=== PATIENT | female | born 1995 | race African-American/Black ===

== ENCOUNTER 2023-01-25 07:33 | Inpatient (IN) | payer OTHER ==
[~2023-01-25] VITALS: Ht 152.4 cm; Wt 72.6 kg
--- NOTE | 2023-01-25 07:39 | NUR ---
called pt to lobby, pt in restroom.
[2023-01-25 07:42] VITALS: BP 179/89; PULSE 115; RESP 22; TEMP 97.7; O2SAT 96
--- NOTE | 2023-01-25 07:42 | NUR ---
ute avila aware of pt status
[2023-01-25] MEDS ORDERED: NACL 0.9% 2,000 ML IV SCH (07:50)
[2023-01-25] MEDS ORDERED: cefTRIAXone 1,000 MG in DEXT 5% MINI-BAG PLUS 50 ML IV ONE (07:50)
--- NOTE | 2023-01-25 07:50 | NUR ---
PATIENT IN BED, PLACED IN ROOM 11, IV PLACED ON THE LEFT HAND, BS: [address] LI AWARE OF ELEVATED SUGAR, NS STARTED PER MD ORDER.
[2023-01-25] MEDS ORDERED: ONDANSETRON 4 MG/2 ML VIAL IVP ONE (08:05)
[2023-01-25] MEDS ORDERED: cefTRIAXone 1,000 MG VIAL ONE (08:06)
--- NOTE | 2023-01-25 08:30 | NUR ---
DR. LI AT BEDSIDE.
[2023-01-25 08:44] LABS: BASOPHILS % (AUTO) 0.4 % (0.0-2.0); EOSINOPHILS % (AUTO) 0.2 % (0.0-4.0); HEMATOCRIT 34.1 % (36-48); HEMOGLOBIN 11.1 g/dL (12.0-16.0); LYMPHOCYTES # (AUTO) 1.5 K/uL (2.5-16.5); LYMPHOCYTES % (AUTO) 17.4 % (20.5-51.1); MEAN CORPUSCULAR HEMOGLOBIN 31 pg (27-31); MEAN CORPUSCULAR HGB CONC 33 g/dL (33-37); MEAN CORPUSCULAR VOLUME 93.8 fL (80-94); MONOCYTES # (AUTO) 0.5 K/uL (0.8-1.0); MONOCYTES % (AUTO) 5.3 % (1.7-9.3); NEUTROPHILS # (AUTO) 6.8 K/uL (1.8-7.7); NEUTROPHILS % (AUTO) 76.7 % (42.2-75.2); PLATELET COUNT (AUTO) 354 K/uL (140-450); RED BLOOD CELL COUNT(AUTO) 3.64 MIL/uL (4.20-5.40); RED CELL DISTRIBUTION WIDTH 12.8 % (11.6-13.7); WHITE BLOOD COUNT (AUTO) 8.9 K/uL (4.8-10.8)
[2023-01-25 08:58] LABS: ALBUMIN 3.4 g/dL (3.4-5.0); ANION GAP 25.6 (8-16); CARBON DIOXIDE 18.6 mmol/L (21-32); CREATININE 1.3 mg/dL (0.6-1.3); POTASSIUM 4.2 mmol/L (3.5-5.1); TOTAL BILIRUBIN 0.7 mg/dL (0.0-1.0)
--- NOTE | 2023-01-25 09:02 | NUR ---
RECEIVED CRITICAL LAB VALUE, GLUCOSE 640, DR. LI AWARE.
[2023-01-25] MEDS ORDERED: INSULIN REGULAR, HUMAN 100 UNIT/ML VIAL IVP ONE (09:45)
--- NOTE | 2023-01-25 10:00 | NUR ---
PERFORMED BEDSIDE GLUCOSE CHECK, MONITOR STATES "HI" AND UNABLE TO OBTAIN GLUCOSE RESULT, INFORMED DR. LI, REQUESTED IF MD WANTS ANOTHER BMP FOR GLUCOSE CHECK FROM LAB, MD STATES HE DOES NOT WANT BMP GLUCOSE AND TO UTILIZE THE CRITICAL RESULT FROM PREVIOUS BMP GLUCOSE (640), AND TO GO AHEAD AND ADMINISTER THE ORDERED INSULIN (PLEASE SEE EMAR FOR FURTHER DETAILS) AND TO BE ADMITTED TO TELE. NO ADDITIONAL ORDERS NOTED AT THE MOMENT.
--- NOTE | 2023-01-25 10:35 | NUR ---
RECEIVED CRITICAL LAB VALUES X2 (PLEASE SEE EMR FOR FURTHER DETAILS), DR. LI IS AWARE OF THE RESULTS, NO ORDERS NOTED AT THE MOMENT AND WILL REINFORCE IF NEEDED.
[2023-01-25] MEDS ORDERED: DEXTROSE 50% 50 ML SYR IVP PRN (11:20)
[2023-01-25] MEDS ORDERED: MAGNESIUM OXIDE 400 MG TAB PO PRN (11:25)
[2023-01-25] MEDS ORDERED: HYDROcodone/APAP 5/325 MG 1 TAB TAB PO PRN (11:25)
[2023-01-25] MEDS ORDERED: MORPHINE SULFATE 2 MG/ML SYR IVP PRN (11:25)
[2023-01-25] MEDS ORDERED: POTASSIUM CHLORIDE 10 MEQ TABER PO PRN (11:25)
[2023-01-25] MEDS ORDERED: ACETAMINOPHEN 325 MG TAB PO PRN (11:25)
[2023-01-25] MEDS ORDERED: INSULIN REGULAR, HUMAN 100 UNIT/ML VIAL IV SCH (11:26)
[2023-01-25] MEDS: NIFEdipine 30 MG TABER PO SCH (11:30)
[2023-01-25] MEDS: INSULIN LANTUS 100 UNITS/ML 10 ML VIAL SUBQ SCH (11:32)
[2023-01-25] MEDS: BLOOD GLUCOSE MONITORING 1 DEV DEV FS SCH ×3 (11:32→20:20)
[2023-01-25] MEDS: INSULIN LISPRO SLIDING SCALE 100 UNITS/ML VIAL SUBQ PRN ×3 (11:35→20:22)
[2023-01-25] MEDS: NACL 0.9% 1,000 ML IV SCH ×2 (11:36→21:48)
--- NOTE | 2023-01-25 11:50 | NUR ---
TRANSFERRED PATIENT TO ROM 112B WITH ANOTHER RN, AND ACLS. NO COMPLICATIONS OR QUESTIONS NOTED ABOUT THE TRANSFER OVER, PROVIDED BEDSIDE REPORT TO KETAN GALLARDO AND HAD NO FURTHER QUESTIONS NOTED AT THE MOMENT.
[2023-01-25 11:55] VITALS: BP 164/99; PULSE 109; PULSE 127; RESP 18; TEMP 98.8; O2SAT 99
--- NOTE | 2023-01-25 11:55 | NUR ---
RECEIVED PT FROM ER. REPORT GIVEN BY RYAN. TRANSPORTED VIA GURNEY. PLACED IN BED COMFORTABLY. ASLEEP BUT AROUSABLE. RESP. EVEN AND UNLABORED. SKIN INTACT. IV SITE INTACT TO LT HAND 22 G. MRSA SWAB COLLECTED. SEND TO LAB. NO C/O PAIN OR DISCOMFORT. CALL LIGHT KEPT WITHIN REACH. PT MONITOR CLOSELY.
--- NOTE | 2023-01-25 12:53 | NUR ---
BS CHECKED 551. HUMULIN R IV ONCE, GIVEN BY AUREA ACEVES. TOLERATED WELL.
[2023-01-25] MEDS: LORazepam 2 MG/ML VIAL IVP PRN ×2 (13:52→20:28)
--- NOTE | 2023-01-25 13:52 | NUR ---
PRN ATIVAN WAS GIVEN BY MARIN ACEVES. TOLERATED WELL.
--- NOTE | 2023-01-25 15:23 | NUR ---
SEEN BY PHYSICAL THERAPY.
[2023-01-25 16:00] VITALS: BP 159/90; PULSE 120; PULSE 126; RESP 17; TEMP 98; O2SAT 98
--- NOTE | 2023-01-25 17:50 | NUR ---
BS CHECKED 417. DR. EILAS NOTIFIED, RECEIVED NEW ORDER GIVE 15 UNITS OF HUMALOG.
--- NOTE | 2023-01-25 17:54 | NUR ---
HUMALOG 15 UNITS SQ WAS GIVEN, TOLERATED WELL.
[2023-01-25] MEDS ORDERED: hydrALAZINE 25 MG TAB PO PRN (18:45)
--- NOTE | 2023-01-25 19:00 | NUR ---
BEDSIDE REPORT GIVEN TO NIGHT NURSE FOR CONTINUITY OF CARE. REMAINS STABLE.
--- NOTE | 2023-01-25 19:10 | NUR ---
RECEIVED PT IN BED ASLEEP, EASILY AWAKEN BY VERBAL STIMULI. DENIES PAIN AT THIS TIME. DENIES SHORTNESS OF BREATH.SON AT THE BEDSIDE. IVF INFUSING WELL ORDERED. SKIN WARM AND DRY TO TOUCH. SAFETY PRECAUTIONS IN PLACE, CALL LIGHT IN REACH, ENCOURAGED TO CALL IF ASSISTANCE IS NEEDED, PT VERBALLY ACKNOWLEDGED.
[2023-01-25 20:00] VITALS: BP 147/85; PULSE 128; PULSE 132; RESP 18; TEMP 98.1; O2SAT 100
--- NOTE | 2023-01-25 20:52 | NUR ---
SPOKE WITH DR. VALVERDE INFORMED THAT HR GOES UP TO 140'S, BP--147/85, PT WAS GIVEN ATIVAN FOR ANXIETY, CURRENTLY 129. PER MD JUST MONITOR FOR NOW.
[2023-01-25 23:51] VITALS: PULSE 123
[2023-01-26] VITALS (16 sets, daily range): BP systolic 117–177; BP diastolic 61–97; PULSE 112–138; RESP 16–40; TEMP 97.3–98.4; O2SAT 98–100
--- NOTE | 2023-01-26 | NUR ---
VITAL SIGNS TAKEN AND DOCUMENTED. DENIES PAIN AT THIS TIME. CALL LIGHT WITHIN REACH.
--- NOTE | 2023-01-26 06:19 | NUR ---
PATIENT IS ASLEEP. ALL NEEDS ATTENDED TO. NO DISTRESS NOTED. SAFETY PRECAUTIONS MAINTAINED DURING THE SHIFT. FREQUENT ROUNDING DONE. CALL LIGHT REMAINS WITHIN REACH.
[2023-01-26] MEDS: INSULIN LISPRO SLIDING SCALE 100 UNITS/ML VIAL SUBQ PRN ×2 (06:30→11:39)
[2023-01-26] MEDS: BLOOD GLUCOSE MONITORING 1 DEV DEV FS SCH ×14 (06:30→23:45)
[2023-01-26 07:12] LABS: BASOPHILS # (AUTO) 0.1 K/uL (0.00-0.22); BASOPHILS % (AUTO) 0.4 % (0.0-2.0); EOSINOPHILS % (AUTO) 0.2 % (0.0-4.0); HEMATOCRIT 31.5 % (36-48); HEMOGLOBIN 10.2 g/dL (12.0-16.0); LYMPHOCYTES # (AUTO) 3.1 K/uL (2.5-16.5); LYMPHOCYTES % (AUTO) 24.7 % (20.5-51.1); MEAN CORPUSCULAR HEMOGLOBIN 30 pg (27-31); MEAN CORPUSCULAR HGB CONC 32 g/dL (33-37); MONOCYTES # (AUTO) 0.7 K/uL (0.8-1.0); MONOCYTES % (AUTO) 5.8 % (1.7-9.3); NEUTROPHILS # (AUTO) 8.7 K/uL (1.8-7.7); NEUTROPHILS % (AUTO) 68.9 % (42.2-75.2); PLATELET COUNT (AUTO) 347 K/uL (140-450); RED BLOOD CELL COUNT(AUTO) 3.39 MIL/uL (4.20-5.40); RED CELL DISTRIBUTION WIDTH 12.9 % (11.6-13.7); WHITE BLOOD COUNT (AUTO) 12.6 K/uL (4.8-10.8)
[2023-01-26 07:16] LABS: ANION GAP 22.5 (8-16); CARBON DIOXIDE 17.3 mmol/L (21-32); CREATININE 1.4 mg/dL (0.6-1.3); POTASSIUM 3.8 mmol/L (3.5-5.1)
[2023-01-26] MEDS: NACL 0.9% 1,000 ML IV SCH ×4 (08:07→22:30)
--- NOTE | 2023-01-26 08:25 | NUR ---
PATIENT REQUEST FOR BLOOD GLUCOSE CHECK AND IT IS 242 MILLIGRAMS PER DECILITER.
--- NOTE | 2023-01-26 08:50 | NUR ---
PATIENT COMPLAINT OF ANXIETY AFTER HAVING DRY HEAVES AND WOULD LIKE MEDICATION FOR THIS.
[2023-01-26] MEDS: INSULIN LANTUS 100 UNITS/ML 10 ML VIAL SUBQ SCH (09:13)
[2023-01-26] MEDS: LORazepam 2 MG/ML VIAL IVP PRN ×3 (09:13→20:44)
[2023-01-26] MEDS: NIFEdipine 30 MG TABER PO SCH (09:13)
--- NOTE | 2023-01-26 09:19 | NUR ---
PATIENT HAS BEEN SCREENED AND CATEGORIZED MODERATE NUTRITION RISK. PATIENT WILL BE SEEN WITHIN 3-5 DAYS OF ADMISSION. 01/28/23-01/30/[address]
[2023-01-26] MEDS: ONDANSETRON 4 MG/2 ML VIAL IVP PRN (09:30)
[2023-01-26 10:05] LABS: APPEARANCE,URINE SL CLOUDY (CLEAR); BILIRUBIN,URINE 1+ (NEGATIVE); BLOOD, URINE 1+ (NEGATIVE); COLOR,URINE YELLOW (YELLOW); LEUKOCYTE ESTERASE ,URINE NEGATIVE (NEGATIVE); NITRITE, URINE NEGATIVE (NEGATIVE); PH,URINE 5.5 (5.0-9.0); UGLUCOSE 1+ (NEGATIVE)
[2023-01-26 10:30] LABS: RBC,URINE 0-5 /HPF (0-5)
--- NOTE | 2023-01-26 11:59 | NUR ---
TRANSFER REPORT AT BEDSIDE WITH ICU TEAM.
[2023-01-26] MEDS: DEXT 5% / NACL 0.45% 1,000 ML IV SCH ×3 (12:30→22:30)
[2023-01-26] MEDS ORDERED: INSULIN REGULAR, HUMAN 100 UNIT in NACL 0.9% 100 ML IV SCH ×2 (12:30)
[2023-01-26] MEDS ORDERED: DEXTROSE 50% 50 ML SYR IVP PRN (12:30)
[2023-01-26] MEDS ORDERED: hydrALAZINE 20 MG/ML VIAL IVP PRN (15:40)
[2023-01-26] MEDS ORDERED: METOPROLOL 5 MG/5 ML VIAL IV SCH (15:44)
[2023-01-26] MEDS ORDERED: METOPROLOL 5 MG/5 ML VIAL IV PRN (15:55)
[2023-01-26 17:20] LABS: ANION GAP 18.9 (8-16); CARBON DIOXIDE 20.6 mmol/L (21-32); CREATININE 1.2 mg/dL (0.6-1.3); POTASSIUM 3.5 mmol/L (3.5-5.1)
[2023-01-26] MEDS: METOPROLOL 5 MG/5 ML VIAL IV PRN (18:16)
--- NOTE | 2023-01-26 18:40 | NUR ---
AFTER BEING UPGRADED TO ICU PT WAS STARTED ON INSULIN DRIP. STARTED AT 1PM AND CURRENTLY AT 0.05 UNIT/KG/HR AND D5 1/2 NS IS RUNNING AT 200 ML. LAST ANION GAP TAKEN AT 1700 WAS 18.5. PT IS ABLE TO VOID IN COMMODE. HR WAS CONSISTENTLY HIGH RANGING FROM 130-145 AND SBP WAS RANGING FROM 160-185. BP MEDS WERE OBTAINED FROM [facility]. FIRTS TRIED HYDRALAZINE 5 TO LITTLE IMPROVEMENT HOWEVER AFTER THE METOPROLOL PRN THE HR WENT DOWN TO 119 AND BP WAS 139/76. MOTHER WAS UPDATED ON PATIENTS CONDITION
--- NOTE | 2023-01-26 19:40 | NUR ---
RECEIVED PT. FROM DAY SHIFT KETAN MCGOVERN. PT. ALERT AND ORIENTED. ON ROOM AIR WITH 02 SAT 100%. LUNGS CLEAR. EYES PERRLA. ABDOMINAL SOUNDS HYPOACTIVE. NPO PER ORDERED. IV TO LEFT UPPER ARM PICC LINE, INFUSING INSULIN DRIP 0.05 MCG/KG/HR AND D5 1/2 NS AT 200 ML/HR. PT. ABLE TO MOVE AND REPOSITION HERSELF TO BED. SINUS TACHYCARDIA ON THE MONITOR. SKIN INTACT. MAKE ALL NEEDS KNOWN. NO S/S OF PAIN. WILL ENDORSED TO THE NEXT SHIFT.
--- NOTE | 2023-01-26 20:24 | NUR ---
DR. AKBAR ([employer]OT AND ANKLE MD) TALKED TO ME THAT IF IT'S POSSIBLE TO ARRANGE TRANSFER THE PT. TO [facility] FOR VASCULAR PROCEDURE (SURGERY) OF THE FEET. HE STATED THAT HE WANTS TO DO THE ANGIOGRAM AND FOR SURE THE RESULT WILL BE NEGATIVE, THAT'S WHY PT. NEEDS TO BE TRANSFERRED TO [facility]. WILL ENDORSE TO NEXT SHIFT, FOR BUSINESS DATA ANALYST TO ARRANGE. Addendum: 01/26/23 at 2050 by KATHERINE MOHAMUD RN CORRECTION: WRONG PT. - THIS DOCUMENTATION BELONGS TO ICU 8, SUNDAR MORILLO
[2023-01-27] VITALS (21 sets, daily range): BP systolic 96–138; BP diastolic 53–115; PULSE 105–133; RESP 15–31; TEMP 97.3–100.8; O2SAT 100
--- NOTE | 2023-01-27 | NUR ---
LAB CAME AND DRAWN BMP.
[2023-01-27] MEDS: BLOOD GLUCOSE MONITORING 1 DEV DEV FS SCH ×14 (00:34→22:35)
[2023-01-27 00:35] LABS: ANION GAP 14.4 (8-16); CARBON DIOXIDE 22.6 mmol/L (21-32); CREATININE 1.1 mg/dL (0.6-1.3)
[2023-01-27] MEDS: DEXT 5% / NACL 0.45% 1,000 ML IV SCH ×2 (03:30→05:02)
[2023-01-27] MEDS: NACL 0.9% 1,000 ML IV SCH ×2 (03:30→08:30)
--- NOTE | 2023-01-27 03:49 | NUR ---
K LEVEL 3.[address] LE AND WILL WAIT FOR HIS ORDER.
--- NOTE | 2023-01-27 03:52 | NUR ---
DR. LE ORDERED 40 MEQ IV POTASSIUM.
[2023-01-27] MEDS ORDERED: KCL 20 MEQ IN 100 mL PREMIX 200 ML IV ONE ×2 (03:55→03:57)
--- NOTE | 2023-01-27 07:21 | NUR ---
ENDORSED PT. TO DAY SHIFT KETAN CURIEL FOR CONTINUITY OF CARE. ALL QUESTIONS ANSWERED.
[2023-01-27] MEDS: NIFEdipine 30 MG TABER PO SCH (09:11)
[2023-01-27 12:20] LABS: CARBON DIOXIDE 24.1 mmol/L (21-32); CREATININE 0.8 mg/dL (0.6-1.3); POTASSIUM 3.1 mmol/L (3.5-5.1)
[2023-01-27 12:36] LABS: BASOPHILS # (AUTO) 0.1 K/uL (0.00-0.22); BASOPHILS % (AUTO) 1.1 % (0.0-2.0); EOSINOPHILS % (AUTO) 0.3 % (0.0-4.0); HEMATOCRIT 30.2 % (36-48); LYMPHOCYTES # (AUTO) 3.6 K/uL (2.5-16.5); LYMPHOCYTES % (AUTO) 38.1 % (20.5-51.1); MEAN CORPUSCULAR HEMOGLOBIN 30 pg (27-31); MEAN CORPUSCULAR HGB CONC 33 g/dL (33-37); MEAN CORPUSCULAR VOLUME 91.5 fL (80-94); MONOCYTES # (AUTO) 0.5 K/uL (0.8-1.0); MONOCYTES % (AUTO) 5.8 % (1.7-9.3); NEUTROPHILS # (AUTO) 5.1 K/uL (1.8-7.7); NEUTROPHILS % (AUTO) 54.7 % (42.2-75.2); PLATELET COUNT (AUTO) 303 K/uL (140-450); RED CELL DISTRIBUTION WIDTH 12.9 % (11.6-13.7); WHITE BLOOD COUNT (AUTO) 9.3 K/uL (4.8-10.8)
--- NOTE | 2023-01-27 12:43 | NUR ---
insulin drip stopped per md order. gap-was 10
[2023-01-27] MEDS: INSULIN LANTUS 100 UNITS/ML 10 ML VIAL SUBQ SCH (12:55)
[2023-01-27] MEDS: LORazepam 2 MG/ML VIAL IVP PRN ×2 (14:41→19:10)
[2023-01-27] MEDS: ONDANSETRON 4 MG/2 ML VIAL IVP PRN (14:41)
[2023-01-27] MEDS: METOPROLOL 5 MG/5 ML VIAL IV PRN (15:09)
[2023-01-27] MEDS ORDERED: METOCLOPRAMIDE 10 MG/2 ML INJ VIAL IVP PRN (16:20)
[2023-01-27] MEDS: INSULIN LISPRO SLIDING SCALE 100 UNITS/ML VIAL SUBQ PRN (16:41)
[2023-01-27 18:12] LABS: BARBITURATE, URINE NEGATIVE ng/ml (NEG <=200); BENZODIAZEPINE, URINE POSITIVE ng/mL (NEG <=200); CANNABINOID, URINE POSITIVE ng/mL (NEG <=50); COCAINE, URINE NEGATIVE ng/mL (NEG <=300); OPIATE, URINE NEGATIVE ng/mL (NEG <=2000); PHENCYCLIDINE SCREEN,URINE NEGATIVE ng/mL (NEG <=25)
--- NOTE | 2023-01-27 18:29 | NUR ---
PT WAS HEMODYNAMICALLY STABLE THROUGHOUT SHIFT. HAD CONTINUOUS EPISODES OF NAUSEA AND VOMITING THAT WAS UNRELIEVED WITH ZOFRAN SO REGLAN WAS ORDERED WHICH PROVED TO BE MORE EFFECTIVE. URINE UDS WAS SENT PER MD ORDER. BP MEDS ADJUSTED TO ACCOMODATE FOR PERSISTENT TACHYCARDIA AND HYPERTENSION
--- NOTE | 2023-01-27 20:10 | NUR ---
PT TRANSFERRED TO [facility] AT 1950. GIVING REPORT TO KETAN MATTA FOR CONTINUITY OF CARE. PT WAS ALERT AND ORIENTED. EASILY AROUSE BY VOICE. PT FOLLOW COMMANDS. EYES PERRLA AND TRACKING. NO S/S OF DISTRESS. NO SOB. LUNG SOUNDS CLEAR TO AUSCULTATION ON ALL LOBES. NORMAL BOWEL SOUNDS. ALL EXTREMITIES MOVE PURPOSELY. SKIN INTACT W/O WOUNDS OR CUT. PT DENIES CHEST PAIN OR HEADACHE. NO PAIN WAS REPORTED. V/S FOLLOW HR 127, BP 182/98, RR 15, SpO2 98% ROOM AIR. KETAN MATTA RECEIVED PT AT BED 11A
[2023-01-27] MEDS: PROPRANOLOL 20 MG TAB PO SCH (21:45)
[2023-01-28] VITALS: BP 146/88; PULSE 111; PULSE 114; RESP 18; TEMP 98.5; O2SAT 100
[2023-01-28 01:00] VITALS: BP 146/88; PULSE 114; RESP 18; TEMP 98.5; O2SAT 100
--- NOTE | 2023-01-28 01:30 | NUR ---
PT IS IN ROOM 111A, SITTING ON THE BED WHILE VOMITING DUE TO PT'S ROOMMATE IN 111B FOUND SMOKING. PT WAS TRANSFERRED TO ROOM 127A.
[2023-01-28] MEDS: LORazepam 2 MG/ML VIAL IVP PRN ×2 (03:05→21:22)
--- NOTE | 2023-01-28 03:05 | NUR ---
PT IS HAVING ANXIETY RELATED TO ROOMMATE IN ROOM 111B SMOKING. PT REQUESTED TO HAVE ANXIETY MEDICATION. ATIVAN FOR ANTI ANXIETY ADMINISTERED ORDER.
[2023-01-28 04:00] VITALS: BP 150/88; PULSE 102; PULSE 111; RESP 18; TEMP 98.4; O2SAT 100
[2023-01-28 06:45] LABS: BASOPHILS # (AUTO) 0.1 K/uL (0.00-0.22); BASOPHILS % (AUTO) 0.8 % (0.0-2.0); EOSINOPHILS % (AUTO) 0.1 % (0.0-4.0); HEMOGLOBIN 12.1 g/dL (12.0-16.0); LYMPHOCYTES # (AUTO) 2.2 K/uL (2.5-16.5); LYMPHOCYTES % (AUTO) 27.7 % (20.5-51.1); MEAN CORPUSCULAR HEMOGLOBIN 30 pg (27-31); MEAN CORPUSCULAR HGB CONC 33 g/dL (33-37); MEAN CORPUSCULAR VOLUME 91.9 fL (80-94); MONOCYTES # (AUTO) 0.5 K/uL (0.8-1.0); MONOCYTES % (AUTO) 6.5 % (1.7-9.3); NEUTROPHILS # (AUTO) 5.2 K/uL (1.8-7.7); NEUTROPHILS % (AUTO) 64.9 % (42.2-75.2); PLATELET COUNT (AUTO) 354 K/uL (140-450); RED BLOOD CELL COUNT(AUTO) 4.03 MIL/uL (4.20-5.40); RED CELL DISTRIBUTION WIDTH 12.7 % (11.6-13.7)
[2023-01-28] MEDS: BLOOD GLUCOSE MONITORING 1 DEV DEV FS SCH ×4 (06:47→21:29)
[2023-01-28] MEDS: INSULIN LISPRO SLIDING SCALE 100 UNITS/ML VIAL SUBQ PRN ×3 (06:49→21:38)
[2023-01-28 06:52] LABS: CARBON DIOXIDE 23.1 mmol/L (21-32); CREATININE 0.8 mg/dL (0.6-1.3); POTASSIUM 4.1 mmol/L (3.5-5.1)
[2023-01-28 08:00] VITALS: BP 127/86; PULSE 106; RESP 18; TEMP 98.3; O2SAT 99
[2023-01-28] MEDS: INSULIN LANTUS 100 UNITS/ML 10 ML VIAL SUBQ SCH (08:46)
[2023-01-28] MEDS: PROPRANOLOL 20 MG TAB PO SCH ×2 (08:47→21:31)
[2023-01-28] MEDS: NIFEdipine 30 MG TABER PO SCH (08:47)
[2023-01-28 12:00] VITALS: BP 122/69; PULSE 101; PULSE 96; RESP 18; TEMP 98.1; O2SAT 100
--- NOTE | 2023-01-28 14:01 | NUR ---
FNS GOT A CALL FOR NUTRITION/FOOD QUESTIONS 01/28/23, RD WENT TO VISIT PATIENT AND PATIENT PREFERRED TO TALK WITH RD TOMORROW. RD WILL FOLLOW UP WITH PATIENT TOMORROW ON DIET AND NUTRITION QUESTIONS 01/29/23.
[2023-01-28 20:00] VITALS: BP 149/94; PULSE 116; RESP 18; TEMP 98.4; O2SAT 100
--- NOTE | 2023-01-28 20:15 | NUR ---
PT TAKES SHOWER.
--- NOTE | 2023-01-29 02:30 | NUR ---
PT COMPLAINTS OF SHAKY OR TREMORS, CHECK BLOOD SUGAR LEVEL = 39. APPROACHES PT THAT SHE WOULD RECEIVE D50 VIA IV TO PUSH UP SUGAR LEVEL, PT REQUESTED TO HAVE SODA DRINK FIRST. PROVIDE PT REGULAR ROSALIO AND 2 CUPS OF ORANGE JUICE.
--- NOTE | 2023-01-29 03:00 | NUR ---
PT REFUSE TO HAVE D50 BEFORE BLOOD SUGAR CHECKED. CHECKED BLOOD SUGAR LEVEL = 90. PT TOOK ANOTHER 2 CUPS OF ORANGE JUICE.
[2023-01-29] MEDS ORDERED: DEXTROSE 50% 50 ML SYR IVP PRN (03:05)
--- NOTE | 2023-01-29 03:30 | NUR ---
BLOOD SUGAR RECHECKED = 132. PT STATED SHE FEELS BETTER AND NOT FEELING SHAKY ANYMORE. PT THEN ASLEEP.
[2023-01-29 05:28] LABS: BASOPHILS # (AUTO) 0.1 K/uL (0.00-0.22); EOSINOPHILS % (AUTO) 0.6 % (0.0-4.0); HEMOGLOBIN 10.3 g/dL (12.0-16.0); LYMPHOCYTES # (AUTO) 2.7 K/uL (2.5-16.5); LYMPHOCYTES % (AUTO) 41.2 % (20.5-51.1); MEAN CORPUSCULAR HEMOGLOBIN 31 pg (27-31); MEAN CORPUSCULAR HGB CONC 33 g/dL (33-37); MEAN CORPUSCULAR VOLUME 91.6 fL (80-94); MONOCYTES # (AUTO) 0.5 K/uL (0.8-1.0); MONOCYTES % (AUTO) 8.3 % (1.7-9.3); NEUTROPHILS # (AUTO) 3.2 K/uL (1.8-7.7); NEUTROPHILS % (AUTO) 48.9 % (42.2-75.2); PLATELET COUNT (AUTO) 299 K/uL (140-450); RED BLOOD CELL COUNT(AUTO) 3.38 MIL/uL (4.20-5.40); RED CELL DISTRIBUTION WIDTH 12.4 % (11.6-13.7); WHITE BLOOD COUNT (AUTO) 6.5 K/uL (4.8-10.8)
[2023-01-29 05:35] LABS: ANION GAP 12.2 (8-16); CARBON DIOXIDE 25.6 mmol/L (21-32); POTASSIUM 3.8 mmol/L (3.5-5.1)
[2023-01-29] MEDS: BLOOD GLUCOSE MONITORING 1 DEV DEV FS SCH ×4 (06:39→21:19)
[2023-01-29] MEDS: INSULIN LISPRO SLIDING SCALE 100 UNITS/ML VIAL SUBQ PRN ×2 (06:40→17:57)
--- NOTE | 2023-01-29 06:40 | NUR ---
BLOOD SUGAR CHECK = 212. HUMALOG INSULIN 4 UNITS ADMINISTERED ORDER.
--- NOTE | 2023-01-29 07:30 | NUR ---
PT IS ON STABLE CONDITION, SAFETY MEASURES ARE IN PLACE. ENDORSED TO DAY SHIFT NURSE BRO FOR CONTINUITY OF CARE.
--- NOTE | 2023-01-29 07:31 | NUR ---
RECEIVED PT FROM [employer] UTILITY WORKER NURSE FOR CONTINUITY OF CARE. PT IS SLEEPING. VISIBLE CHEST RISE/FALL. RESPIRATIONS EVEN AND UNLABORED ON RA. NO DISTRESS NOTED. SKIN WARM AND DRY. CALL LIGHT WITHIN REACH. ALL SAFETY PRECAUTIONS IN PLACE.
[2023-01-29 08:00] VITALS: BP 100/64; PULSE 86; PULSE 96; RESP 18; RESP 20; TEMP 98.4; O2SAT 100; O2SAT 98
[2023-01-29] MEDS: NIFEdipine 30 MG TABER PO SCH (09:00)
[2023-01-29] MEDS: PROPRANOLOL 20 MG TAB PO SCH ×2 (09:00→20:27)
[2023-01-29] MEDS: INSULIN LANTUS 100 UNITS/ML 10 ML VIAL SUBQ SCH (10:20)
--- NOTE | 2023-01-29 11:02 | NUR ---
Mag ox given to cover magnesium level of 1.5
--- NOTE | 2023-01-29 12:02 | NUR ---
DC PLANNING A 27 Y.O.FEMALE PATIENT ADMITTED FOR 3 DAYS HX OF WEAKNESS WITH DYSURIA.NO MRSA ISOLATED. BLOOD CULTURES NO GROWTH.ON CEFTRIAXONE.WAS TRANSFERRED TO ICU ON 01/26 FOR HIGH BLOOD GLUCOSE LEVEL WITH HI ANION GAP. WAS STARTED ON INSULIN DRIP FOR A DAY.OFF INSULIN DRIP AND PATIENT WAS TRANSFERRED BACK TO TELEMETRY 01/27.DC BACK HOME WHEN PATIENT IMPROVES AND WHEN PA
--- NOTE | 2023-01-29 15:04 | NUR ---
01/29/23 RD INITIAL ASSESSMENT COMPLETED PLEASE REFER TO NUTRITION ASSESSMENT UNDER CARE ACTIVITY FOR ESTIMATED NUTRITIONAL NEEDS. [facility]. [facility]. [facility] ENCOURAGED PATIENT TO MAKE SURE TO FOLLOW A DIABETIC DIET ONCE SHE LEAVES THE HOSPITAL. 3. RD TO FOLLOW-UP 3-5 DAYS, MODERATE RISK GABI MONTANEZ RD
[2023-01-29] MEDS ORDERED: LANTUS SUBQ (15:30)
[2023-01-29] MEDS ORDERED: PROP20TA29 PO (15:30)
[2023-01-29 16:00] VITALS: BP 120/80; PULSE 101; RESP 18; TEMP 97.5; O2SAT 100
[2023-01-29 16:24] VITALS: BP 100/64; PULSE 18; RESP 18; TEMP 98.4
--- NOTE | 2023-01-29 19:05 | NUR ---
ENDORSED PT TO CHIEF ENGINEER'S HELPER NURSE FOR CONTINUITY OF CARE. PT IS STABLE.
--- NOTE | 2023-01-29 19:06 | NUR ---
RECEIVED SHIFT REPORT FROM [employer] EXPANSION ENVELOPE MAKER HAND, PATIENT WAS STABLE. PATIENT WAS ABLE TO SPEAK WITH NURSING WITHOUT INCIDENT. ALERT AND ORIENTED X 4. NO S/S OF HYPER/HYPOGLYCEMIA. CALL LIGHT WITHIN REACH. SIDE RAILS UP X 2 FOR COMFORT AND ADJUSTMENT. PATIENT HAD NO COMPLAINT OF PAIN/DISCOMFORT. NO S/S OF RESPIRATORY DISTRESS. PATIENT IS ABLE TO USE THE RESTROOM WITHOUT ASSISTANCE. [email or web address]
--- NOTE | 2023-01-29 21:55 | NUR ---
PICC LINE NEEDS REINFORCEMENT. THIS WAS REPORTED TO COVERING RN TO CLEAN AND CHANGE DRESSING. WITHOUT INCIDENT. NO NOTED S/S OF IV INFILTRATION. IV SITE KEPT CLEAN AND DRY. ALL NEEDS MET. CALL LIGHT WITHIN REACH. SIDE RAILS UP X 2. [email or web address]
--- NOTE | 2023-01-29 23:24 | NUR ---
PATIENT WAS GIVEN A SNACK AND A WARM BLANKET. [email or web address]
--- NOTE | 2023-01-30 01:25 | NUR ---
PATIENT IN BED ASLEEP WITHOUT INCIDENT. PATIENT KEPT CLEAN AND DRY. SIDE RAILS UP X 2. CALL LIGHT WITHIN REACH. [email or web address]
--- NOTE | 2023-01-30 03:50 | NUR ---
NO S/S OF HYPER/HYPOGLYCEMIA. PATIENT HAS NO S/S OF PAIN/DISCOMFORT. NO S/S OR RESPIRATORY DISTRESS. PATIENT IN BED ASLEEP WITHOUT INCIDENT. PATIENT KEPT CLEAN AND DRY. SIDE RAILS UP X 2. CALL LIGHT WITHIN REACH. [email or web address]
[2023-01-30 04:00] VITALS: BP 118/69; PULSE 90; RESP 17; TEMP 97.9; O2SAT 100
--- NOTE | 2023-01-30 05:02 | NUR ---
COVERING RN WAS ABLE TO GET BLOOD FROM THE PICC LINE OR MORNING DRAW. NO NOTED INCIDENTS. PATIENT REQUEST A WARM BLANKET AND IT WAS GIVEN. ALL NEEDS MET AT THIS TIME. [email or web address]
[2023-01-30 05:13] LABS: HEMATOCRIT 27.5 % (36-48); HEMOGLOBIN 9.1 g/dL (12.0-16.0); MEAN CORPUSCULAR HEMOGLOBIN 30 pg (27-31); MEAN CORPUSCULAR HGB CONC 33 g/dL (33-37); MEAN CORPUSCULAR VOLUME 91.7 fL (80-94); PLATELET COUNT (AUTO) 243 K/uL (140-450); RED CELL DISTRIBUTION WIDTH 12.7 % (11.6-13.7); WHITE BLOOD COUNT (AUTO) 6.4 K/uL (4.8-10.8)
[2023-01-30 05:48] LABS: ANION GAP 10.9 (8-16); CARBON DIOXIDE 26.9 mmol/L (21-32); CREATININE 0.8 mg/dL (0.6-1.3); POTASSIUM 3.8 mmol/L (3.5-5.1)
[2023-01-30 06:10] LABS: BASOPHILS % (MANUAL) 1 % (0-2); EOSINOPHILS % (MANUAL) 0 % (0-4); LYMPHOCYTES % (MANUAL) 57 % (20-46); MONOCYTES % (MANUAL) 13 % (5-12)
[2023-01-30] MEDS: BLOOD GLUCOSE MONITORING 1 DEV DEV FS SCH (06:52)
--- NOTE | 2023-01-30 07:26 | NUR ---
ENDORSED SHIFT REPORT TO MARIN ACEVES, PATIENT WAS STABLE DURING THE REPORT. [email or web address]
--- NOTE | 2023-01-30 07:27 | NUR ---
RECEIVED ENDORSEMENT FROM WAREHOUSE ADMINISTRATOR NURSE FOR CONTINUITY OF CARE. PT IS AWAKE, NO SIGN OF DISTRESS. CALL LIGHT WITHIN REACH. MNURUM
[2023-01-30] MEDS: INSULIN LANTUS 100 UNITS/ML 10 ML VIAL SUBQ SCH (09:00)
[2023-01-30] MEDS: NIFEdipine 30 MG TABER PO SCH (09:13)
[2023-01-30] MEDS: PROPRANOLOL 20 MG TAB PO SCH (09:14)
[2023-01-30] MEDS ORDERED: INSULIN LANTUS 100 UNITS/ML 10 ML VIAL SUBQ SCH (10:31)
[2023-01-30] MEDS ORDERED: PROP20TA29 PO (14:19)
[2023-01-30] MEDS ORDERED: INSU100S22 SUBQ (14:19)
--- NOTE | 2023-01-30 15:05 | NUR ---
PT WAS DISCHARGED AROUND 1500 VIA UBER. ID BAND AND PICC LINE REMOVED. DISCHARGE INSTRUCTIONS GIVEN.
--- NOTE | 2023-02-08 15:54 | NUR ---
CALLED DR AMBROSE'S OFFICE LOCATED [address] [address]. SPOKE WITH KATE WHO WAS ABLE TO INFORM ME THAT PATIENT WOULD HAVE TO CALL HERSELF IN ORDER TO SCHEDULE AN APPOINTMENT DUE TO BEING A NEW PATIENT. CALLED PATIENT AND INFORMED HER OF THE ABOVE INFORMATION ALSO EMAILED PATIENT AT
== END 2023-01-30 15:41 | disposition home or self-care (01) | DRG 420 ==
LOC: MED 07:33 → EDBD 07:33 → MTU 11:21 → MIC 01-26 11:57 → MTU 01-27 19:50 → MMU 01-28 02:26
PROVIDERS: ADMIT Student in an Organized Health Care Education/Training Program; ATTEND Student in an Organized Health Care Education/Training Program
PROC: 02HV33Z Insertion of Infusion Device into Superior Vena Cava, Percutaneous Approach (ICD-10-PCS; principal; 2023-01-26)
PROC: B548ZZA Ultrasonography of Superior Vena Cava, Guidance (ICD-10-PCS; 2023-01-26)
DX: E10.10 Type 1 diabetes mellitus with ketoacidosis without coma (principal); D84.9 Immunodeficiency, unspecified; N17.9 Acute kidney failure, unspecified; E87.3 Alkalosis; R65.10 Systemic inflammatory response syndrome (SIRS) of non-infectious origin without acute organ dysfunction; E44.0 Moderate protein-calorie malnutrition; E10.22 Type 1 diabetes mellitus with diabetic chronic kidney disease; E10.65 Type 1 diabetes mellitus with hyperglycemia; N18.9 Chronic kidney disease, unspecified; Z20.822 Contact with and (suspected) exposure to COVID-19; E78.5 Hyperlipidemia, unspecified; E86.1 Hypovolemia; E86.0 Dehydration; Z88.2 Allergy status to sulfonamides; Z88.8 Allergy status to other drugs, medicaments and biological substances; Z68.31 Body mass index [BMI] 31.0-31.9, adult
CPT/HCPCS: 36415; 71045; 80048; 80053; 80305; 81001; 82948; 83605; 83690; 83735; 83880; 84443; 84484; 85025; 87040; 87081; 93005; 96372; 96374; 96375; 97116; 97163-GP; 97530; 99285; J0360; J0696; J1644; J1815; J2060; J2405; J2765; J3480; J3490; J7060; Q0092

== ENCOUNTER 2023-04-20 07:24 | Emergency (ER) | payer OTHER ==
[~2023-04-20] VITALS: Ht 152.4 cm; Wt 70.5 kg
[~2023-04-20 07:24] MED LIST: INSU100S22 SUBQ; LANTUS SUBQ; PROP20TA29 PO
[2023-04-20 07:42] VITALS: BP 142/78; PULSE 91; RESP 18; TEMP 97.3; O2SAT 100
[2023-04-20] MEDS ORDERED: NACL 0.9% 2,000 ML IV ONE (07:55)
[2023-04-20] MEDS ORDERED: ONDANSETRON 4 MG/2 ML VIAL IVP ONE (08:00)
[2023-04-20 08:08] LABS: BASOPHILS # (AUTO) 0.1 K/uL (0.00-0.22); BASOPHILS % (AUTO) 0.6 % (0.0-2.0); EOSINOPHILS % (AUTO) 0.2 % (0.0-4.0); HEMATOCRIT 35.3 % (36-48); HEMOGLOBIN 11.4 g/dL (12.0-16.0); LYMPHOCYTES # (AUTO) 1.6 K/uL (2.5-16.5); LYMPHOCYTES % (AUTO) 17.1 % (20.5-51.1); MEAN CORPUSCULAR HEMOGLOBIN 31 pg (27-31); MEAN CORPUSCULAR HGB CONC 32 g/dL (33-37); MEAN CORPUSCULAR VOLUME 94.5 fL (80-94); MONOCYTES # (AUTO) 0.3 K/uL (0.8-1.0); MONOCYTES % (AUTO) 3.6 % (1.7-9.3); NEUTROPHILS # (AUTO) 7.3 K/uL (1.8-7.7); NEUTROPHILS % (AUTO) 78.5 % (42.2-75.2); PLATELET COUNT (AUTO) 375 K/uL (140-450); RED BLOOD CELL COUNT(AUTO) 3.74 MIL/uL (4.20-5.40); RED CELL DISTRIBUTION WIDTH 13.3 % (11.6-13.7); WHITE BLOOD COUNT (AUTO) 9.3 K/uL (4.8-10.8)
[2023-04-20 08:23] LABS: ACETONE, SERUM NEGATIVE (NEGATIVE)
[2023-04-20 08:37] LABS: ALANINE AMINOTRANSFERASE 21 U/L (12-78); ALBUMIN 3.2 g/dL (3.4-5.0); ALKALINE PHOSPHATASE 135 U/L (50-136); ANION GAP 19.2 (8-16); ASPARTATE AMINOTRANSFERASE 26 U/L (15-37); CALCIUM 8.4 mg/dL (8.5-10.1); CARBON DIOXIDE 20.1 mmol/L (21-32); CHLORIDE 98 mmol/L (98-107); CREATININE 1.5 mg/dL (0.6-1.3); GFR ARICAN-AMERICAN 53 mL/min (>90); GFR NON ARICAN-AMERICAN 44 mL/min (>90); LIPASE 79 U/L (73-393); POTASSIUM 4.3 mmol/L (3.5-5.1); SODIUM SERUM 133 mmol/L (136-145); TOTAL BILIRUBIN 0.6 mg/dL (0.0-1.0); TOTAL PROTEIN, SERUM 7.9 g/dL (6.4-8.2); UREA NITROGEN, BLOOD 22 mg/dL (7-18)
[2023-04-20 08:39] LABS: GLUCOSE 535 mg/dL (74-106)
[2023-04-20] MEDS ORDERED: FAMO-92 PO (10:45)
[2023-04-20] MEDS ORDERED: ONDA-188 PO (10:45)
[2023-04-20 11:08] LABS: BILIRUBIN,URINE NEGATIVE (NEGATIVE); COLOR,URINE YELLOW (YELLOW); LEUKOCYTE ESTERASE ,URINE NEGATIVE (NEGATIVE); NITRITE, URINE NEGATIVE (NEGATIVE); PROTEIN,URINE 1+ (NEGATIVE); UGLUCOSE 3+ (NEGATIVE); UROBILINOGEN,URINE 0.2 EU/dL (0.2 - 1)
[2023-04-20 11:10] VITALS: BP 138/83; PULSE 86; RESP 18; TEMP 98; O2SAT 100
[2023-04-20 11:15] LABS: APPEARANCE,URINE CLEAR (CLEAR)
[2023-04-20 11:16] LABS: BLOOD, URINE TRACE (NEGATIVE)
[2023-04-20 11:17] LABS: BACTERIA,URINE FEW /HPF (None Seen); RBC,URINE 0-5 /HPF (0-5); SQUAMOUS EPITHELIAL CELL,UR 0-3 (FEW) /LPF (0-3 (FEW)); WBC,URINE 0-5 /HPF (0-5)
== END 2023-04-20 11:10 | disposition home or self-care (01) ==
LOC: MED 07:24
DX: E11.65 Type 2 diabetes mellitus with hyperglycemia (principal); R11.10 Vomiting, unspecified; F12.90 Cannabis use, unspecified, uncomplicated; Z88.2 Allergy status to sulfonamides; Z88.8 Allergy status to other drugs, medicaments and biological substances; Z79.4 Long term (current) use of insulin; Z79.899 Other long term (current) drug therapy
CPT/HCPCS: 36415; 80053; 81001; 81025; 82009; 82803; 82948; 83690; 84484; 85025; 93005; 96361; 96374; 99285; J2405; J7030